=== PATIENT | female | born 1970 | race Asian ===

== ENCOUNTER 2018-03-29 06:01 | Day surgery (SDC) | payer OTHER ==
[2018-03-29] MEDS ORDERED: DIPHENHYDRAMINE 50 MG INJ (07:45)
[2018-03-29] MEDS ORDERED: FENTAnyl 50 MCG/ML VIAL (08:28)
[2018-03-29] MEDS ORDERED: MIDAZOLAM 1 MG/ML 2 ML INJ ×4 (08:28)
[2018-03-29] MEDS ORDERED: MEPERIDINE 50 MG INJ (08:29)
== END 2018-03-29 10:11 | disposition home or self-care (01) ==
LOC: GIL 06:01
DX: D12.5 Benign neoplasm of sigmoid colon (principal); K57.30 Diverticulosis of large intestine without perforation or abscess without bleeding; K64.4 Residual hemorrhoidal skin tags
CPT/HCPCS: 45380; 88305